=== PATIENT | female | born 1975 | race Two or more races ===

== ENCOUNTER 2024-07-12 02:06 | Emergency (ER) | payer MEDICAID ==
[~2024-07-12] VITALS: Ht 157.5 cm; Wt 56.8 kg
[2024-07-12] MEDS: MethylPREDNISolone SOD SUCC 125 MG/2 ML VIAL IVP ONE (02:25)
[2024-07-12 02:31] LABS: BASOPHILS % (AUTO) 0.6 % (0.0-2.0); EOSINOPHILS % (AUTO) 0.7 % (1.0-6.0); HEMATOCRIT 41.3 % (36-46); HEMOGLOBIN 13.3 g/dL (12.0-16.0); LYMPHOCYTES # (AUTO) 4.7 K/uL (1.0-4.8); LYMPHOCYTES % (AUTO) 32.1 % (22.0-44.0); MEAN CORPUSCULAR HEMOGLOBIN 27.1 pg (26.0-34.0); MEAN CORPUSCULAR HGB CONC 32.2 G/dL (31.0-37.0); MEAN CORPUSCULAR VOLUME 84 fL (80-100); MONOCYTES # (AUTO) 1.4 K/uL (0.1-1.0); MONOCYTES % (AUTO) 9.6 % (2.0-9.0); NEUTROPHILS # (AUTO) 8.4 K/uL (1.8-7.7); PLATELET COUNT (AUTO) 511 K/uL (150-450); RED CELL DISTRIBUTION WIDTH 14.9 % (11.5-14.5); WHITE BLOOD COUNT (AUTO) 14.7 K/uL (4.5-11.0)
[2024-07-12] MEDS: BENZONATATE 100 MG CAPSULE PO ONE (02:37)
[2024-07-12 02:39] LABS: ANION GAP 11 mmol/L (8-16); CARBON DIOXIDE 25 mmol/L (22-29); CHLORIDE 101 mmol/L (98-107); CREATININE 0.87 mg/dL (0.60-1.30); GLOMERULAR FILTR. RATE CALC > 60 mL/min (>60); GLUCOSE,RANDOM 104 mg/dL (70-110); POTASSIUM 3.3 mmol/L (3.5-5.1); SODIUM SERUM 137 mmol/L (136-145); UREA NITROGEN, BLOOD 13 mg/dL (7-18)
[2024-07-12 02:48] LABS: TROPONIN I-HIGH SENSITIVITY 4 ng/L (<51)
[2024-07-12 03:00] VITALS: PULSE 102; RESP 28; O2SAT 98
[2024-07-12] MEDS: GuaiFENesin [SUGAR-FREE] 200 MG/10 ML SOLUTION UDCUP PO ONE (03:08)
[2024-07-12] MEDS: HYDROCODONE/ACETAMINOPHEN 10-325 MG TABLET PO ONE (03:08)
[2024-07-12] MEDS: IPRATROPIUM BROMIDE 0.5 MG/2.5 ML NEB SOLUTION NEB ONE (03:19)
[2024-07-12] MEDS: ALBUTEROL SULFATE 2.5 MG/0.5 ML NEB SOLUTION NEB ONE (03:19)
[2024-07-12 03:33] VITALS: PULSE 104; RESP 26; O2SAT 100
[2024-07-12 03:52] LABS: INFLUENZA A-RTPCR,COMBO NEGATIVE (NEGATIVE); INFLUENZA B-RTPCR,COMBO NEGATIVE (NEGATIVE); RESPIRATORY SYNCYTIAL VRS-PCR NEGATIVE (NEGATIVE); SARS COVID19 RTPCR, COMBO NEGATIVE (NEGATIVE)
[2024-07-12] MEDS ORDERED: IBUP-1554 PO (04:08)
[2024-07-12] MEDS ORDERED: GUAIF10 PO (04:08)
[2024-07-12] MEDS ORDERED: HYDR-4072 PO (04:08)
[2024-07-12] MEDS ORDERED: BENZ-227 PO (04:08)
[2024-07-12 04:10] VITALS: BP 112/77; PULSE 82; RESP 20; O2SAT 96
[2024-07-12] MEDS: ONDANSETRON 4 MG TABLET PO ONE (04:27)
== END 2024-07-12 04:45 | disposition home or self-care (01) ==
LOC: EMS 02:08
DX: J04.0 Acute laryngitis (principal); J06.9 Acute upper respiratory infection, unspecified; R06.02 Shortness of breath; R05.9 Cough, unspecified; Z20.822 Contact with and (suspected) exposure to COVID-19
CPT/HCPCS: 99284; 96374; 0241U; 71045; 80048; 84484; 84703; 85025; 36415; 94640; J2919; Q0162; J7613